=== PATIENT | male | born 1945 | race Caucasian/White ===

== ENCOUNTER 2021-03-29 07:40 | Day surgery (SDC) | payer MEDICARE, OTHER ==
[~2021-03-29] VITALS: Ht 182.9 cm; Wt 94.1 kg
[~2021-03-29 07:40] MED LIST: AMLODIPINE BESYL5 MG PO; ARICEPT10 MG PO; ICAPS AREDS2 C1 EACH PO; MAG DELAY64 M1 PO; MEGARED OMEGA-1 EAC3 PO; MULTI PRO CAPS1 EACH PO; OCUVITE ADULT1 EAC1 PO; OSTERA TABLET1 EACH PO; VITAMIN E OIL-V52 M1 TOP
--- NOTE | 2021-03-29 11:00 | NUR ---
03/29/21 1100 Sheets,Qi 1053 PT ARRIVED TO PACU ON 10L VIA MASK, PT NONAROUSABLE WITH AIRWAY IN PLACE. VSS. RESP EVEN AND UNLABORED.
--- NOTE | 2021-03-29 17:47 | OR ---
[facility] [address] [place], [place] [address] Signed DATE OF OPERATION: 03/29/2021 SURGEON: Adela Castillo MD PREOPERATIVE DIAGNOSIS: Positive Cologuard test. POSTOPERATIVE DIAGNOSES: 1. Minimal sigmoid diverticulosis. 2. Moderate internal hemorrhoids. 3. 4 mm polyp distal right colon. PROCEDURE: Colonoscopy with hot biopsy. ESTIMATED BLOOD LOSS: None. INDICATIONS: Poonam is a 75-year-old gentleman, who is significantly disabled. In the past, he has always declined colonoscopies. He underwent Cologuard testing and it came back positive. He has no lower GI complaints. He has no family history of colon cancer or polyps. He is also hard of hearing and has fairly significant dementia. Consequently, his always comes with him. Nevertheless, he does maintain fairly good functional status. He just had cataract surgery. In the office, I gave Poonam and his a pamphlet on colonoscopy. His has been through 3 colonoscopies herself. As a result, she had good insight. They understand there is risk including, but not limited to gas bloating, crampy abdominal pain, bleeding, perforation requiring surgery, and missed diagnosis. Also because of his advanced medical issues, we asked that an anesthesia provider help us with increased monitoring sedation with propofol. He and his had expressed understanding and wished to proceed. PROCEDURE NOTE: Poonam was taken into our endoscopy suite and placed in the left lateral decubitus position. He was given IV propofol per our nurse soil sort worker. A digital rectal exam was performed and essentially there was nothing to find after his cryotherapy. No dominant nodules. The area was flat. There were really no external hemorrhoids. Good sphincter tone. The adult colonoscope had been introduced and advanced around into the cecum itself without much difficulty. His prep was good. We could easily see the appendiceal orifice and the ileocecal valve. The scope was then slowly withdrawn. We Electronically Signed By: ADELA CASTILLO MD 03/29/21 1747 PATIENT NAME: POONAM BURGESS OPERATIVE REPORT DATE OF : 41 REPORT #: [id number] PHYSICIAN: ADELA CASTILLO MD PCP: RITA TERRY MD REPORT IS CONFIDENTIAL AND NOT TO BE RELEASED WITHOUT AUTHORIZATION [facility] [address] [place] [id number] Signed took pictures throughout for photodocumentation. He had a tiny 4 mm polyp in the distal right colon. It was easily removed with hot biopsy forceps. He does have some diverticula in the sigmoid colon. They were fairly small in size, [id number] in number, and scattered about. The rectum was unremarkable. Upon retroflexion of the scope, he does have moderate internal hemorrhoids. After this, the gas was suctioned out. The colonoscope removed. Jose Eduardo tolerated the procedure quite well. RECOMMENDATIONS: I will see Jose Eduardo back in my office in 7 to 14 days to review his results. Adela Castillo MD ALB/MODL /[id number] cc: MD Korey Rogers, MD Adela Parker MD Dr. Naeem Chavla Chart Filed Incomplete Copies: KIANNA KURTZ MD,KOREY TERRY,RITA CASTILLO,ADELA Peck MD CHART FILED INCOMPLETE ~ Electronically Signed By: ADELA CASTILLO MD 03/29/21 1747 PATIENT NAME: POONAM BURGESS OPERATIVE REPORT DATE OF : 41 REPORT #: [id number] PHYSICIAN: ADELA CASTILLO MD PCP: RITA TERRY MD REPORT IS CONFIDENTIAL AND NOT TO BE RELEASED WITHOUT AUTHORIZATION
--- NOTE | 2021-04-02 08:56 | PATH ---
[facility] [address] [place] [place] [address] Signed SPECIMEN(S): A DISTAL RIGHT COLON POLYP SPECIMEN SOURCE: A. DISTAL RIGHT COLON POLYP CLINICAL HISTORY: Colonoscopy. Heme positive stool test. Postop: Diverticulosis, internal hemorrhoids, colon polyp. MICROSCOPIC DESCRIPTION: Histologic sections of all submitted blocks are examined by light microscopy. These findings, together with the gross examination, support the pathologic diagnosis. FINAL PATHOLOGIC DIAGNOSIS: Colon, distal right, polypectomy: - Benign colonic mucosa with prominent intramucosal lymphoid aggregate. - No evidence of neoplasia. COMMENT: Sections of colonic tissue demonstrate a benign intramucosal lymphoid aggregate. Intramucosal lymphoid aggregates can sometimes appear as polyps endoscopically. They have no clinical significance. There is no evidence of dysplasia or malignancy. TWK:caw:C2NR GROSS DESCRIPTION: The specimen, labeled "AJ, 1," and designated on the requisition "polypectomy, ascending/right, distal," is received in formalin and consists of two fragments of pink-alba tissue (0.1 and 0.3 cm in greatest dimension). The specimen is submitted entirely in cassette (A1). AC (under the direct supervision of a pathologist The Gross Description was prepared using a voice recognition system. The report was reviewed for accuracy; however, sound-alike word errors, addition and/or deletions may occur. If there is any question about this report, please contact Client Services. PERFORMING LABORATORY: The technical component was performed by [facility], [address] [place] [id number] (Quad Stayer: Luciana Caraballo MD; CLIA# [id number]). The professional interpretation was performed by [facility], [facility], [address] [place], [place] PATIENT NAME: POONAM BURGESS PATHOLOGY DATE OF : 41 REPORT #: [id number] PHYSICIAN: SEAN PATHOLOGY PCP: RITA TERRY MD REPORT IS CONFIDENTIAL AND NOT TO BE RELEASED WITHOUT AUTHORIZATION [facility] [address] [place] [id number] Signed [id number]. Diagnostician: Vicente Meraz MD Pathologist Electronically Signed 04/02/2021 Copies: ~ PATIENT NAME: POONAM BURGESS PATHOLOGY DATE OF : 41 REPORT #: [id number] PHYSICIAN: SEAN PATHOLOGY PCP: RITA TERRY MD REPORT IS CONFIDENTIAL AND NOT TO BE RELEASED WITHOUT AUTHORIZATION
== END 2021-03-29 11:38 | disposition home or self-care (01) ==
LOC: DS 07:40 → OPS 07:40
PROVIDERS: ATTEND Colon & Rectal Surgery
PROC: 0DBF8ZZ Excision of Right Large Intestine, Via Natural or Artificial Opening Endoscopic (ICD-10-PCS; principal; 2021-03-29 09:15)
DX: K63.5 Polyp of colon (principal); K57.30 Diverticulosis of large intestine without perforation or abscess without bleeding; K64.8 Other hemorrhoids; F03.90 Unspecified dementia, unspecified severity, without behavioral disturbance, psychotic disturbance, mood disturbance, and anxiety; I12.9 Hypertensive chronic kidney disease with stage 1 through stage 4 chronic kidney disease, or unspecified chronic kidney disease; N18.30 Chronic kidney disease, stage 3 unspecified; H91.90 Unspecified hearing loss, unspecified ear; R94.31 Abnormal electrocardiogram [ECG] [EKG]; Z80.0 Family history of malignant neoplasm of digestive organs; Z85.46 Personal history of malignant neoplasm of prostate
CPT/HCPCS: 88305; J2704; J7121